=== PATIENT | female | born 1950 | race Caucasian/White ===

== ENCOUNTER 2017-05-28 18:59 | Emergency (ER) | payer MEDICARE, OTHER ==
[~2017-05-28] VITALS: Ht 162.6 cm; Wt 85.5 kg
[2017-05-28 19:02] VITALS: Ht 162.6 cm; Wt 85.5 kg
--- NOTE | 2017-05-28 20:46 | ERD ---
ER Documentation Chief Complaint Date/Time DATE: 05/28/17 TIME: 20:43 Chief Complaint sent by clinic for swelling of left upper arm x 3 days HPI This is a very pleasant 66-year-old female with a history of hypertension hyperlipidemia who presents the emergency room with nontraumatic left upper extremity pain. She describes approximately 3 days of pain to the proximal left upper extremity with associated swelling. She denies any chest pain or shortness of breath, no pleuritic pain. She denies any fevers or chills. She does take a statin. She denies any recent travel or immobilization. ROS All systems reviewed and are negative except as per history of present illness. Medications Home Meds Active Scripts Ibuprofen* (Motrin*) 600 Mg Tab, 600 MG PO Q6H Y for PAIN AND OR ELEVATED TEMP, #30 TAB Prov:MARTINA SHIPMAN MD 05/28/17 Reported Medications Docusate Sodium* (Colace*) 100 Mg Capsule, 100 MG PO DAILY, #30 CAP 05/28/17 Tramadol Hcl* (Ultram*) 50 Mg Tablet, 50 MG PO DAILY Y for PAIN, TAB 05/28/17 Aspirin* (Aspirin* EC) 81 Mg Tablet.dr, 81 MG PO DAILY, TAB 05/28/17 Rosuvastatin Calcium* (Crestor*) 20 Mg Tablet, 20 MG PO DAILY, #30 TAB 05/28/17 Glimepiride* (Amaryl*) Unknown Strength Tablet, 1 TAB PO WITH BREAKFAST DINNE, TAB 05/28/17 Sitagliptin Phos/Metformin HCl (Janumet 50-1,000 mg Tablet) Unknown Strength Tablet, 1 EACH PO BID, TAB 05/28/17 Allergies Allergies: Coded Allergies: iodine (Verified Allergy, Unknown, 05/28/17) PMhx/Soc History of Surgery: No Anesthesia Reaction: No Hx Neurological Disorder: No Hx Respiratory Disorders: No Hx Cardiac Disorders: Yes (HTN, HIGH CHOLESTEROL) Hx Psychiatric Problems: No Hx Miscellaneous Medical Probl: Yes (DM, ARTHRITIS) Hx Alcohol Use: No Hx Substance Use: No Hx Tobacco Use: No Smoking Status: Never smoker FmHx Family History: diabetes Physical Exam Vitals Vital Signs Date Time Temp Pulse Resp B/P Pulse Ox O2 Delivery O2 Flow Rate FiO2 05/28/17 19:02 98.4 82 20 141/73 98 Physical Exam General: Well developed, well nourished, no acute distress Head: Normocephalic, atraumatic. Eyes: Pupils equally reactive, EOM intact ENT: Moist mucous membranes Neck: Supple, no lymphadenopathy Respiratory: Lungs clear bilaterally, no distress Cardiovascular: RRR, no murmurs, rubs, or gallops Abdominal: Soft, non-tender, non-distended, no peritoneal signs : Deferred MSK: Proximal left upper extremity soft tissue is slightly firm and tender to palpation. The patient has intact flexion of the biceps and brachioradialis muscles without difficulty or limited range of motion or pain. She has soft compartments with 2+ radial and ulnar pulses. Radial, median, ulnar, axillary nerves are intact. Neurologic: Alert and oriented, moving all extremities, normal speech, no focal weakness, no cerebellar signs Skin: No rash Psych: Normal mood Result Diagram: 05/28/17203905/28/172039 Results 24 hrs Laboratory Tests Test 05/28/17 20:40 White Blood Count 10.610^3/ul Red Blood Count 4.2910^6/ul Hemoglobin 12.8g/dl Hematocrit 37.2% Mean Corpuscular Volume 86.7fl Mean Corpuscular Hemoglobin 29.8pg Mean Corpuscular Hemoglobin Concent 34.4g/dl Red Cell Distribution Width 12.4% Platelet Count 40954^3/UL Mean Platelet Volume 10.0fl Neutrophils % 59.1% Lymphocytes % 29.6% Monocytes % 6.5% Eosinophils % 3.6% Basophils % 0.6% Nucleated Red Blood Cells % 0.0/100WBC Neutrophils # (Manual) 610^3/ul Lymphocytes # 3.110^3/ul Monocytes # 0.710^3/ul Eosinophils # 0.410^3/ul Basophils # 0.110^3/ul Nucleated Red Blood Cells # 0.010^3/ul Prothrombin Time 12.0Sec Prothrombin Time Ratio 0.9 INR International Normalized Ratio 0.89 Activated Partial Thromboplast Time 26.5Sec Sodium Level 140mmol/L Potassium Level 4.8mmol/L Chloride Level 95mmol/L Carbon Dioxide Level 28mmol/L Anion Gap 22 Blood Urea Nitrogen 23mg/dl Creatinine 0.98mg/dl Glucose Level 225mg/dl Calcium Level 10.1mg/dl Creatine Kinase 26IU/L Procedures/MDM EKG, MONITORS, & DIAGNOSTIC IMAGING: Duplex of the left upper extremity: Negative for DVT LAB INTERPRETATION: No acute process, normal CPK MEDICAL DECISION MAKING: Unclear etiology as to the patient's nontraumatic left proximal upper extremity pain. DVT should be considered and a duplex would be appropriate but the patient has no significant risk factors for DVT. It would be odd for her to have an upper extremity DVT. No signs of breast malignancy no lymphadenopathy. Patient does take a statin consider myositis, total creatinine kinase would be appropriate. No evidence of deep space infection or fracture, no indication for x-ray imaging. ER COURSE: Unclear etiology as to the patient's symptoms, consider possible biceps or brachioradialis injury that is occult. Outpatient MRI imaging may be necessary. Repeat ultrasound in 1 week if symptoms do not improve, warm compresses and range of motion exercises recommended. I kept the patient and/or family informed of laboratory and diagnostic imaging results throughout the emergency room course. DISPOSITION PLAN: We discussed follow up with the patient's primary care doctor within 24 to 48 hours as needed. We also discussed return to the emergency room for worsening symptoms or worsening condition. Outpatient referral: [None required] Discharge Medications: Motrin CONSULTATION: [] Departure Diagnosis: Primary Impression: Arm pain, left Condition: Stable MARTINA SHIPMAN MD May 28, 2017 20:45
[2017-05-28 20:55] LABS: BASOPHIL # 0.1 10^3/ul (0.0-0.1); BASOPHILS % 0.6 % (0.0-2.0); EOSINOPHILS # 0.4 10^3/ul (0.0-0.5); EOSINOPHILS % 3.6 % (0.0-7.0); HEMATOCRIT 37.2 % (37.0-47.0); HEMOGLOBIN 12.8 g/dl (12.0-16.0); LYMPHOCYTES # 3.1 10^3/ul (0.8-2.9); LYMPHOCYTES % 29.6 % (15.0-51.0); MEAN CORPUSCULAR HEMOGLOBIN 29.8 pg (29.0-33.0); MEAN CORPUSCULAR HGB CONC 34.4 g/dl (32.0-37.0); MEAN CORPUSCULAR VOLUME 86.7 fl (82.0-101.0); MONOCYTE # 0.7 10^3/ul (0.3-0.9); MONOCYTES % 6.5 % (0.0-11.0); NEUTROPHILS % 59.1 % (39.0-77.0); PLATELET COUNT 334 10^3/UL (140-415); RED BLOOD COUNT 4.29 10^6/ul (4.20-5.40); RED CELL DISTRIBUTION WIDTH 12.4 % (11.5-14.5); WHITE BLOOD COUNT 10.6 10^3/ul (4.8-10.8)
[2017-05-28 21:16] LABS: INR 0.89; PT RATIO 0.9
[2017-05-28 21:17] LABS: PARTIAL THROMBOPLASTIN TIME 26.5 Sec (25.0-35.0)
[2017-05-28 21:26] LABS: CALCIUM 10.1 mg/dl (8.4-10.2); CREATININE 0.98 mg/dl (0.44-1.00); POTASSIUM 4.8 mmol/L (3.5-5.1)
[2017-05-28] MEDS ORDERED: SITA1TAB5 PO (21:48)
[2017-05-28] MEDS ORDERED: GLIM1TAB PO (21:49)
[2017-05-28] MEDS ORDERED: ROSU20TA PO (21:50)
[2017-05-28] MEDS ORDERED: ASPI-664 PO (21:50)
[2017-05-28] MEDS ORDERED: DOCU-144 PO (21:51)
[2017-05-28] MEDS ORDERED: TRAM-40 PO (21:51)
--- NOTE | 2017-05-28 22:10 | RADRPT ---
PROCEDURE: Left upper extremity venous ultrasound CLINICAL INDICATION: Left arm pain and swelling. Deep venous thrombosis. TECHNIQUE: Barbosa scale, color doppler, spectral doppler ultrasound imaging of the venous system of the left upper extremity. Augmentation maneuvers were utilized. COMPARISON: No prior studies are available for comparison. FINDINGS: LEFT: Internal jugular vein: Patent. Subclavian vein: Patent. Axillary vein: Patent. Brachial vein: Patent. Basilic vein: Patent. Cephalic vein: Not visualized by the plant guard. Radial vein: Patent. Ulnar vein: Patent. IMPRESSION: No evidence of a deep vein thrombosis involving the left upper extremity. RPTAT: AADD .Natanael Valentine MD, MD Date Time Electronically viewed and signed by .Natanael Valentine MD, on 05/28/2017 22:09 .B/
[2017-05-28] MEDS ORDERED: IBUP-1542 PO (22:26)
[2017-05-28 22:42] VITALS: BP 136/70; PULSE 85; RESP 20
== END 2017-05-28 22:43 | disposition home or self-care (01) ==
LOC: E/R 18:59
DX: M79.602 Pain in left arm (principal); I10 Essential (primary) hypertension; E11.9 Type 2 diabetes mellitus without complications; Z79.82 Long term (current) use of aspirin; Z79.84 Long term (current) use of oral hypoglycemic drugs
CPT/HCPCS: 80048; 82550; 85025; 85610; 85730; 93971